=== PATIENT | male | born 1970 | race African-American/Black ===

== ENCOUNTER 2024-01-12 12:59 | Inpatient (IN) | payer BC ==
[~2024-01-12] VITALS: Ht 170.2 cm; Wt 91.0 kg
[2024-01-12 13:49] LABS: Basophils # (auto) 0 10 ^3/uL (0-0.2); Basophils % (auto) 0.2 % (0.0-2.0); Eosinophils # (auto) 0 10 ^3/uL (0-0.8); Eosinophils % (auto) 0.1 % (0.0-7.0); Hematocrit 43.8 % (41.0-53.0); Hemoglobin 14.6 g/dL (13.5-17.5); Lymphocytes # (auto) 1.6 10 ^3/uL (0.4-5.4); Lymphocytes % (auto) 9.6 % (10.0-50.0); Mean Corpuscular Hemoglobin 28.8 pg (28.0-32.0); Mean Corpuscular Hgb Conc. 33.4 g/dL (32.0-36.0); Mean Corpuscular Volume 86.1 fL (80.0-100.0); Monocytes % (auto) 6.2 % (0.0-12.0); Neutrophils % (auto) 83.9 % (37.0-80.0); Red Blood Cells 5.08 10^6/uL (4.5-5.90); Red Cell Distribution Width 14.5 % (11.8-14.3); White Blood Cell 16.7 10^3/uL (4.4-10.8)
[2024-01-12 13:59] LABS: Anion Gap 6 (5-15); Carbon Dioxide 29 mmol/L (20-30); Chloride 97 mmol/L (98-107); Potassium 3.5 mmol/L (3.5-5.1); Sodium 132 mmol/L (136-145)
[2024-01-12 14:00] LABS: Calcium 8.9 mg/dL (8.5-10.1)
[2024-01-12 14:04] LABS: Glucose 235 mg/dL (74-106)
[2024-01-12 14:05] LABS: BUN/Creatinine Ratio 15.5 (10.0-20.0); Blood Urea Nitrogen 22 mg/dL (9-23)
[2024-01-12] MEDS ORDERED: ACETAMINOPHEN 325 MG TAB PO PRN (17:30)
[2024-01-12] MEDS ORDERED: ONDANSETRON HCL 4 MG/2 ML VIAL IV PRN (17:30)
[2024-01-12] MEDS ORDERED: DEXTROSE (50%) 50ML SYRG IV PRN (17:30)
[2024-01-12] MEDS ORDERED: MORPHINE SULFATE INJ 2 MG/ml SYRG IV PRN (17:30)
[2024-01-12] MEDS ORDERED: DOCUSATE SOD 100 MG CAP PO PRN (17:30)
[2024-01-12] MEDS ORDERED: SIMV20TA20 PO (17:34)
[2024-01-12] MEDS ORDERED: MET50T PO (17:34)
[2024-01-12] MEDS ORDERED: ENAL1TAB48 PO (17:34)
[2024-01-12] MEDS ORDERED: HYDR25TA5 PO (17:34)
[2024-01-12 18:22] LABS: Bilirubin, Total 1.1 mg/dL (0.2-1.0)
[2024-01-12 21:28] VITALS: PULSE 99; RESP 16; O2SAT 95
[2024-01-12] MEDS: SODIUM CHLORIDE 0.9% 1,000 ML IV ONE ×2 (21:39→22:34)
[2024-01-12] MEDS: GENTAMICIN OPTH sol 0.3% 5ml LEFTEYE ONE (21:40)
[2024-01-12] MEDS: GENTAMICIN OPTH sol 0.3% 5ml LEFTEYE SCH (21:40)
[2024-01-12] MEDS: ACCU-CHEK COMFORT CURVE STRIP VI SCH (21:44)
[2024-01-12] MEDS: cefTRIAXone 1GM/50ML D5W 50 ML IV SCH (21:55)
[2024-01-12] MEDS: METOPROLOL TARTRATE 50 MG TAB PO SCH (21:57)
[2024-01-12] MEDS: ENALAPRIL MALEATE 10 MG TAB PO SCH (21:57)
[2024-01-12] MEDS: ATORVASTATIN 20 MG TAB PO SCH (21:57)
[2024-01-12] MEDS: InsuLIN REG 1unit/0.01ml Soln (100units/ml) SC SCH (22:02)
[2024-01-12] MEDS: metroNIDAZOLE 500MG/100ML 100 ML IV SCH (22:14)
[2024-01-12 22:42] LABS: Amphetamine Screen, Urine Neg (NEGATIVE); Barbiturate Scree,Urine Neg (NEGATIVE); Benzodiazephine Screen, Urine Neg (NEGATIVE); Cannabinoid Screen, Urine Neg (NEGATIVE); Cocaine Screen, Urine Neg (NEGATIVE); Opiate Scree,Urine Neg (NEGATIVE); Phencyclidine Screen, Urine Neg (NEGATIVE)
[2024-01-12 22:53] LABS: Urine Bacteria MANY /hpf (None Seen); Urine Blood Negative /uL (Negative); Urine Clarity HAZY (Clear); Urine Color Yellow (Yellow); Urine Hyaline Cast FEW /lpf (0 - 2); Urine Mucus FEW (None Seen); Urine Protein, UAD 1+ (Negative); Urine Specific Gravity 1.026 (1.001-1.035); Urine Urobilinogen Normal (Negative); Urine WBC 84 /hpf (0 - 3); Urine pH 5.5 (5.0-8.0)
[2024-01-13] VITALS (8 sets, daily range): BP systolic 117–161; BP diastolic 72–102; PULSE 69–98; RESP 12–18; TEMP 97.6–98.8; O2SAT 90–98
[2024-01-13] MEDS: PIPERACILLIN-TAZOB 3.375GM 100 ML IV ONE (00:28)
[2024-01-13] MEDS: SODIUM CHLORIDE 0.9% 1,000 ML IV ONE (00:47)
[2024-01-13] MEDS: HYDROcodone-ACET 5/325MG TAB PO PRN (03:16)
[2024-01-13 05:33] LABS: Basophils # (auto) 0 10 ^3/uL (0-0.2); Basophils % (auto) 0.2 % (0.0-2.0); Eosinophils # (auto) 0 10 ^3/uL (0-0.8); Eosinophils % (auto) 0.2 % (0.0-7.0); Hematocrit 38.1 % (41.0-53.0); Hemoglobin 12.9 g/dL (13.5-17.5); Lymphocytes # (auto) 1.4 10 ^3/uL (0.4-5.4); Lymphocytes % (auto) 8.5 % (10.0-50.0); Mean Corpuscular Hemoglobin 29.4 pg (28.0-32.0); Mean Corpuscular Hgb Conc. 33.9 g/dL (32.0-36.0); Mean Corpuscular Volume 86.6 fL (80.0-100.0); Monocytes # (auto) 1.1 10 ^3/uL (0-1.3); Monocytes % (auto) 6.4 % (0.0-12.0); Neutrophils # (auto) 13.9 10 ^3/uL (1.6-8.6); Neutrophils % (auto) 84.7 % (37.0-80.0); Red Blood Cells 4.39 10^6/uL (4.5-5.90); Red Cell Distribution Width 14.4 % (11.8-14.3); White Blood Cell 16.4 10^3/uL (4.4-10.8)
[2024-01-13 05:52] LABS: Alanine Aminotransferase 54 U/L (7-40); Albumin 3.2 g/dL (3.2-4.8); Alkaline Phosphatase 152 U/L (46-116); Anion Gap 5 (5-15); Aspartate Aminotransferase 47 U/L (13-40); BUN/Creatinine Ratio 17.5 (10.0-20.0); Bilirubin, Total 0.8 mg/dL (0.2-1.0); Blood Urea Nitrogen 22 mg/dL (9-23); Calcium 8.3 mg/dL (8.5-10.1); Carbon Dioxide 28 mmol/L (20-30); Chloride 102 mmol/L (98-107); Glucose 182 mg/dL (74-106); Potassium 3.6 mmol/L (3.5-5.1); Sodium 135 mmol/L (136-145); Total Protein 6.3 g/dL (5.7-8.2)
[2024-01-13] MEDS: InsuLIN REG 1unit/0.01ml Soln (100units/ml) SC SCH (06:31)
[2024-01-13 08:43] LABS: Hepatitis B Surface Antigen Negative (Negative)
[2024-01-13 09:05] LABS: Hepatitis C Antibody Negative (Negative)
[2024-01-13] MEDS: hydroCHLOROthiazide 25 MG TAB PO SCH (11:02)
[2024-01-13] MEDS: hydrALAZINE HCL 20 MG/ML VL IV PRN (12:47)
[2024-01-14] VITALS (8 sets, daily range): BP systolic 125–148; BP diastolic 76–101; PULSE 65–89; RESP 12–16; TEMP 97.5–98.9; O2SAT 94–97
[2024-01-14 06:02] LABS: Basophils # (auto) 0 10 ^3/uL (0-0.2); Basophils % (auto) 0.2 % (0.0-2.0); Eosinophils # (auto) 0 10 ^3/uL (0-0.8); Eosinophils % (auto) 0.1 % (0.0-7.0); Hematocrit 39.9 % (41.0-53.0); Hemoglobin 13.3 g/dL (13.5-17.5); Lymphocytes # (auto) 1.6 10 ^3/uL (0.4-5.4); Lymphocytes % (auto) 8.6 % (10.0-50.0); Mean Corpuscular Hgb Conc. 33.3 g/dL (32.0-36.0); Monocytes # (auto) 1.1 10 ^3/uL (0-1.3); Neutrophils # (auto) 15.7 10 ^3/uL (1.6-8.6); Neutrophils % (auto) 85.1 % (37.0-80.0); Red Blood Cells 4.59 10^6/uL (4.5-5.90); Red Cell Distribution Width 14.2 % (11.8-14.3); White Blood Cell 18.5 10^3/uL (4.4-10.8)
[2024-01-14 06:04] LABS: Anion Gap 7 (5-15); Carbon Dioxide 28 mmol/L (20-30); Chloride 99 mmol/L (98-107); Potassium 4.1 mmol/L (3.5-5.1); Sodium 134 mmol/L (136-145)
[2024-01-14 06:05] LABS: Calcium 8.9 mg/dL (8.5-10.1)
[2024-01-14 06:10] LABS: BUN/Creatinine Ratio 14.5 (10.0-20.0); Blood Urea Nitrogen 16 mg/dL (9-23); Glucose 142 mg/dL (74-106)
[2024-01-14] MEDS: PIPERACILLIN-TAZOB 3.375GM 100 ML IV SCH (14:13)
[2024-01-14] MEDS: amLODIPine BESYLATE 5 MG TAB PO ONE (14:17)
[2024-01-14] MEDS: GADOTERATE MEG 10 MMOL/20ml INJ (0.5MMOL/ml) IV ONE (15:24)
[2024-01-14] MEDS: TIMOLOL MALEATE 0.25 % OPTH SOL 5ML LEFTEYE SCH (23:09)
[2024-01-14] MEDS: DORZOLAMIDE HCL 2% OPTH(EYE) SOL 10ML LEFTEYE SCH (23:10)
[2024-01-15] VITALS (7 sets, daily range): BP systolic 115–147; BP diastolic 69–95; PULSE 63–87; RESP 14–21; TEMP 98–98.5; O2SAT 94–99
[2024-01-15 06:33] LABS: Basophils # (auto) 0.1 10 ^3/uL (0-0.2); Basophils % (auto) 0.3 % (0.0-2.0); Eosinophils # (auto) 0 10 ^3/uL (0-0.8); Eosinophils % (auto) 0.3 % (0.0-7.0); Hematocrit 38.8 % (41.0-53.0); Hemoglobin 13.1 g/dL (13.5-17.5); Lymphocytes # (auto) 1.5 10 ^3/uL (0.4-5.4); Lymphocytes % (auto) 9.1 % (10.0-50.0); Mean Corpuscular Hemoglobin 29.2 pg (28.0-32.0); Mean Corpuscular Hgb Conc. 33.6 g/dL (32.0-36.0); Mean Corpuscular Volume 86.8 fL (80.0-100.0); Monocytes # (auto) 0.9 10 ^3/uL (0-1.3); Monocytes % (auto) 5.6 % (0.0-12.0); Neutrophils # (auto) 14.1 10 ^3/uL (1.6-8.6); Neutrophils % (auto) 84.7 % (37.0-80.0); Red Blood Cells 4.47 10^6/uL (4.5-5.90); Red Cell Distribution Width 14.2 % (11.8-14.3); White Blood Cell 16.6 10^3/uL (4.4-10.8)
[2024-01-15 06:47] LABS: Alanine Aminotransferase 49 U/L (7-40); Albumin 3.3 g/dL (3.2-4.8); Alkaline Phosphatase 146 U/L (46-116); Anion Gap 7 (5-15); Aspartate Aminotransferase 40 U/L (13-40); BUN/Creatinine Ratio 13.4 (10.0-20.0); Blood Urea Nitrogen 15 mg/dL (9-23); Calcium 8.9 mg/dL (8.7-10.4); Carbon Dioxide 29 mmol/L (20-30); Chloride 96 mmol/L (98-107); Glucose 127 mg/dL (74-106); Magnesium 1.8 mg/dL (1.6-2.6); Potassium 3.9 mmol/L (3.5-5.1); Sodium 132 mmol/L (136-145)
[2024-01-15 06:48] LABS: Bilirubin, Total 0.9 mg/dL (0.2-1.0); Total Protein 7.3 g/dL (5.7-8.2)
[2024-01-15 08:07] LABS: PSA Free 1.29 ng/mL; Prostate Specific Antigen 7.9 ng/mL (0.0-4.0)
[2024-01-15] MEDS: amLODIPine BESYLATE 5 MG TAB PO SCH (10:09)
[2024-01-15] MEDS: PANTOPRAZOLE 40 MG/10 ML VIAL INJ IV SCH (10:11)
[2024-01-15] MEDS ORDERED: VANCOMYCIN PER PHARMACY 0 MG IV SCH (16:45)
[2024-01-15] MEDS: VANCOMYCIN 1GM/200ML 200 ML IV ONE (18:42)
[2024-01-15] MEDS: metroNIDAZOLE 500MG/100ML 100 ML IV SCH (22:00)
[2024-01-16] VITALS (7 sets, daily range): BP systolic 123–141; BP diastolic 73–91; PULSE 73–84; RESP 17–22; TEMP 98.1–100.5; O2SAT 95–97
[2024-01-16] MEDS: VANCOMYCIN 1GM/200ML 200 ML IV SCH (06:20)
[2024-01-16 06:52] LABS: Basophils # (auto) 0 10 ^3/uL (0-0.2); Basophils % (auto) 0.3 % (0.0-2.0); Eosinophils # (auto) 0.1 10 ^3/uL (0-0.8); Eosinophils % (auto) 0.4 % (0.0-7.0); Hemoglobin 12.7 g/dL (13.5-17.5); Lymphocytes # (auto) 1.3 10 ^3/uL (0.4-5.4); Lymphocytes % (auto) 8.7 % (10.0-50.0); Mean Corpuscular Hgb Conc. 33.5 g/dL (32.0-36.0); Mean Corpuscular Volume 86.5 fL (80.0-100.0); Monocytes # (auto) 0.7 10 ^3/uL (0-1.3); Monocytes % (auto) 4.8 % (0.0-12.0); Neutrophils # (auto) 13.1 10 ^3/uL (1.6-8.6); Neutrophils % (auto) 85.8 % (37.0-80.0); Red Blood Cells 4.39 10^6/uL (4.5-5.90); Red Cell Distribution Width 14.4 % (11.8-14.3); White Blood Cell 15.2 10^3/uL (4.4-10.8)
[2024-01-16 07:36] LABS: Alanine Aminotransferase 41 U/L (7-40); Albumin 3.2 g/dL (3.2-4.8); Alkaline Phosphatase 142 U/L (46-116); Anion Gap 6 (5-15); Aspartate Aminotransferase 35 U/L (13-40); BUN/Creatinine Ratio 11.4 (10.0-20.0); Blood Urea Nitrogen 12 mg/dL (9-23); Calcium 8.9 mg/dL (8.7-10.4); Carbon Dioxide 26 mmol/L (20-30); Chloride 99 mmol/L (98-107); Glucose 145 mg/dL (74-106); Magnesium 1.8 mg/dL (1.6-2.6); Potassium 3.9 mmol/L (3.5-5.1); Sodium 131 mmol/L (136-145)
[2024-01-16 07:37] LABS: Bilirubin, Total 0.8 mg/dL (0.2-1.0); Total Protein 7.3 g/dL (5.7-8.2)
== END 2024-01-16 23:00 | disposition short-term general hospital (02) | DRG 121 ==
LOC: ER 12:59 → OVERFLOW 17:34 → EAST 01-13 03:02
PROVIDERS: ADMIT Nurse Practitioner Family; ATTEND Internal Medicine Geriatric Medicine
DX: H05.012 Cellulitis of left orbit (principal); L03.213 Periorbital cellulitis; N17.9 Acute kidney failure, unspecified; N39.0 Urinary tract infection, site not specified; E11.65 Type 2 diabetes mellitus with hyperglycemia; E86.0 Dehydration; I10 Essential (primary) hypertension; C61 Malignant neoplasm of prostate; K52.9 Noninfective gastroenteritis and colitis, unspecified; K76.89 Other specified diseases of liver; H53.8 Other visual disturbances; R97.20 Elevated prostate specific antigen [PSA]
CPT/HCPCS: 36415; 70450; 70480; 70551; 71045; 74176; 74183; 76705; 80048; 80053; 80307; 81001; 82010; 82105; 82247; 82378; 82962; 83036; 83605; 83735; 84075; 84154; 84443; 84450; 84460; 85025; 86301; 86803; 87040; 87340; C9113; G0378; J1815; J2543; J3490